=== PATIENT | male | born 1985 | race Two or more races ===

== ENCOUNTER 2022-09-04 17:08 | Emergency (ER) | payer MEDICAID ==
[~2022-09-04] VITALS: Ht 175.3 cm; Wt 76.4 kg
[~2022-09-04 17:08] MED LIST: ALBU18
[2022-09-04 17:14] VITALS: BP 142/79
[2022-09-04] MEDS ORDERED: cefTRIAXone SOD 1,000 MG VL IM ONE (20:15)
[2022-09-04] MEDS ORDERED: methylPREDNISolone ACETATE 80 MG/ML VL IM ONE ×2 (20:15→20:30)
[2022-09-04] MEDS ORDERED: AMOX875T4 PO (20:22)
[2022-09-04] MEDS ORDERED: PRED20TA2 PO (20:22)
[2022-09-04] MEDS ORDERED: methylPREDNISolone SOD SUCC 125 MG/2 ML VL IM ONE (20:30)
== END 2022-09-04 20:53 | disposition home or self-care (01) ==
LOC: ER 17:08
DX: J03.90 Acute tonsillitis, unspecified (principal); R59.0 Localized enlarged lymph nodes; F17.210 Nicotine dependence, cigarettes, uncomplicated; F15.10 Other stimulant abuse, uncomplicated
CPT/HCPCS: 96372; 99284; J0696; J2930